=== PATIENT | male | born 1980 | race Caucasian/White ===

== ENCOUNTER 2021-07-16 20:24 | Emergency (ER) | payer OTHER ==
[~2021-07-16] VITALS: Ht 172.7 cm; Wt 81.7 kg
[2021-07-16 21:09] LABS: ABSOLUTE BASOPHILS 0.1 thou/uL (0.0-0.2); ABSOLUTE EOSINOPHILS 0.6 thou/uL (0.0-0.7); ABSOLUTE LYMPHOCYTES 3.1 thou/uL (0.8-5.3); ABSOLUTE MONOCYTES 0.6 thou/uL (0.0-1.2); ABSOLUTE NEUTROPHILS 5.7 thou/uL (1.6-8.1); EOSINOPHILS 5.7 %; HEMATOCRIT 43.8 % (42.0-52.0); HEMOGLOBIN 15.3 gm/dL (14.0-18.0); LYMPHOCYTES 30.7 %; MCH 32.7 pg (26.0-34.0); MCHC 34.8 g/dL (28.0-37.0); MCV 93.8 fL (80.0-100.0); MPV 7.9 fl. (7.2-11.1); NUCLEATED RBCS 0 /100WBC; PLATELET COUNT* 261 thou/uL (150-400); POLYS 56.6 %; RBC 4.67 mil/uL (4.50-6.00); RDW-CV 13.3 % (10.5-14.5)
[2021-07-16 21:16] LABS: CALCIUM 8.4 mg/dL (8.5-10.1); CREATININE 1.1 mg/dL (0.6-1.3); MAGNESIUM 2.1 mg/dL (1.8-2.4); POTASSIUM 3.9 mmol/L (3.5-5.1)
[2021-07-16] MEDS ORDERED: VERTICALM25 MG PO (22:12)
[2021-07-16] MEDS ORDERED: PREDNISONE50 MG PO (22:12)
[2021-07-16] MEDS ORDERED: ZOFRAN ODT4 MG PO (22:12)
[2021-07-16 22:20] VITALS: BP 125/70
--- NOTE | 2021-07-18 10:35 | EKG ---
[place] [address] ELECTROCARDIOGRAM REPORT Name: TEDDUTSIN Hola Room: [facility]#: [id number] Admission: 07/16/21 Attend Phys: Discharge: 07/16/21 Date of : 78 Date of Service: 07/16/212032 Report #: [id number] THIS REPORT FOR: //name// [facility] ED Test Date: 2021-07-16 Test Time: 20:33:16 Pat Name: DUSTIN JEAN Department: Room: Gender: Damage Appraiser: : 1980 Requested By: Claudia Bernstein Order Number: [id number] Alda MD: Heber Reis Measurements Intervals [place] Rate: 61 P: -20 [place]: 44 QRS: 58 QRSD: 97 T: 29 QT: 426 QTc: 429 Interpretive Statements Sinus rhythm Short [place] interval septal infarct, age indeterminate No previous ECG available for comparison Electronically Signed On 07-18-2021 10:35:10 CDT by Heber Reis [email or web address] <ELECTRONICALLY SIGNED> By: Heber Reis MD, [facility] 07/18/21 1035 32 32 Heber Reis MD, [facility] /EPI
== END 2021-07-16 22:21 | disposition home or self-care (01) ==
LOC: M.ERS 20:24
PROVIDERS: Emergency Medicine
DX: R42 Dizziness and giddiness (principal); Z20.822 Contact with and (suspected) exposure to COVID-19

== ENCOUNTER → 2021-07-26 | Outpatient (CLI) | payer OTHER ==
[~2021-07-26] MED LIST: PREDNISONE50 MG PO; VERTICALM25 MG PO; ZOFRAN ODT4 MG PO
== END ==
LOC: M.MRI 11:51
PROVIDERS: ATTEND Internal Medicine
DX: R90.82 White matter disease, unspecified (principal); R51.9 Headache, unspecified; R42 Dizziness and giddiness